=== PATIENT | male | born 1965 | race African-American/Black ===

== ENCOUNTER 2018-05-12 16:17 | Inpatient (IN) ==
[2018-05-12] MEDS ORDERED: METOPROLOL TARTRATE 5 MG/5 ML VIAL IV ONE (18:59)
[2018-05-12] MEDS ORDERED: ACETAMINOPHEN 325 MG TABLET PO PRN (19:40)
[2018-05-12] MEDS ORDERED: ONDANSETRON 4 MG/2 ML VIAL IV PRN (19:40)
[2018-05-12] MEDS: HEPARIN DRIP 25,000 UNITS/500 ML PREMIX IV SCH (20:40)
[2018-05-12 20:47] LABS: Basophils % 0.7 % (0.0-0.8); Eosinophils % 0.5 % (0.00-10.9); Hematocrit 39.2 VOL% (42.0-52.0); Hemoglobin 11.9 GM/DL (14.0-18.0); Immature Granulocytes % 0.4 %; Immature Granulocytes Absolute 0.02 #; Lymphocytes % 16.9 % (21.2-54.2); Mean Corpuscular HGB Conc 30.4 GM/DL (32-36); Mean Corpuscular Hemoglobin 23 PG (27-34); Mean Corpuscular Volume 75.5 FL (87-102); Mean Platelet Volume 11.9 FL (9.6-12.0); Monocytes # 0.3 10*3/uL (0.11-0.8); Monocytes % 4.8 % (1.7-12.7); Neutrophils # 4.3 10*3/uL (1.4-7.4); Neutrophils % 76.7 % (38.7-73.9); Platelet Count 218 T/CUMM (130-400); Red Blood Count 5.19 MC/CUMM (3.8-5.5); Red Cell Distribution Width 15.8 % (9.3-17.3); White Blood Count 5.6 T/CUMM (4-12)
[2018-05-12 21:14] LABS: Alanine Aminotransferase 20 U/L (16-61); Albumin 3.4 G/DL (3.4-5.0); Alkaline Phosphatase 78 U/L (45-117); Aspartate Amino Transferase 20 U/L (0-37); Blood Urea Nitrogen 15 MG/DL (7-18); Calcium 8.8 MG/DL (8.5-10.1); Cholesterol 187 MG/DL (50-200); Glucose 110 MG/DL (74-106); HDL Cholesterol 38 MG/DL (40-60); Osmolality,Calculated 287.8 MOS/KG (273-304); Potassium 4.3 MMOL/L (3.5-5.1); Risk Ratio 4.92; Sodium 144 MMOL/L (136-145); Triglycerides 46 MG/DL (2-150); Troponin I < 0.015 NG/ML (0.00-0.045); VLDL CHOLESTEROL 9.2 MG/DL
[2018-05-13] MEDS: DILTIAZEM INJ 100 MG in SODIUM CHLORIDE 0.9% 100 ML IV SCH ×2 (02:40→10:05)
[2018-05-13 03:45] LABS: Basophils % 0.7 % (0.0-0.8); Eosinophils # 0.1 10*3/uL (0.0-0.87); Eosinophils % 1.9 % (0.00-10.9); Hematocrit 37.7 VOL% (42.0-52.0); Hemoglobin 11.5 GM/DL (14.0-18.0); Immature Granulocytes % 0.4 %; Immature Granulocytes Absolute 0.02 #; Lymphocytes # 1.4 10*3/uL (1.4-4.0); Lymphocytes % 25.9 % (21.2-54.2); Mean Corpuscular HGB Conc 30.5 GM/DL (32-36); Mean Corpuscular Hemoglobin 23 PG (27-34); Mean Corpuscular Volume 74.7 FL (87-102); Mean Platelet Volume 11.9 FL (9.6-12.0); Monocytes # 0.5 10*3/uL (0.11-0.8); Monocytes % 9.1 % (1.7-12.7); Neutrophils # 3.4 10*3/uL (1.4-7.4); Platelet Count 238 T/CUMM (130-400); Red Blood Count 5.05 MC/CUMM (3.8-5.5); Red Cell Distribution Width 15.8 % (9.3-17.3); White Blood Count 5.4 T/CUMM (4-12)
[2018-05-13 04:10] LABS: Alanine Aminotransferase 17 U/L (16-61); Alkaline Phosphatase 72 U/L (45-117); Aspartate Amino Transferase 15 U/L (0-37); Blood Urea Nitrogen 15 MG/DL (7-18); Calcium 8.6 MG/DL (8.5-10.1); Glucose 108 MG/DL (74-106); Osmolality,Calculated 284.1 MOS/KG (273-304); Potassium 3.6 MMOL/L (3.5-5.1); Sodium 142 MMOL/L (136-145); Total Protein 6.4 G/DL (6.4-8.3); Troponin I < 0.015 NG/ML (0.00-0.045)
[2018-05-13 05:15] LABS: Apearance,Urine CLEAR (Clear); Bilirubin,Urine Negative (Negative); Blood, Urine Negative (Negative); Glucose,Urine (UA) Negative (Negative); Hyaline Casts,Urine 3 /LPF (0-3); Ketones,Urine Negative (Negative); Mucus,Urine Few /LPF (Occasional); Nitrite,Urine Negative (Negative); Protein,Urine Negative; RBC,Urine <1 /HPF (0-4); Squamous Epithelial Cell,Urine Occasional /HPF (0-10); Urine Color Yellow (Yellow); Urine Specific Gravity 1.016 (1.001-1.035); Urine Urobilinogen < 2.0 EU/DL (0.2-1.0); WBC,Urine 2 /HPF (0-6)
[2018-05-13] MEDS: HEPARIN DRIP 25,000 UNITS/500 ML PREMIX IV SCH (06:25)
[2018-05-13] MEDS: PANTOPRAZOLE 40 MG TABLET PO SCH (09:06)
[2018-05-13] MEDS ORDERED: POTASSIUM CHLORIDE 20 MEQ TABLET PO ONE (09:50)
[2018-05-13] MEDS: DILTIAZEM CD 240 MG CAPSULE PO SCH ×2 (11:37→20:49)
[2018-05-13] MEDS: ASCORBIC ACID 500 MG TABLET PO SCH (20:50)
[2018-05-13] MEDS: APIXABAN 5 MG TABLET PO SCH (20:50)
[2018-05-14 03:55] LABS: Basophils # 0.1 10*3/uL (0.0-0.2); Basophils % 0.9 % (0.0-0.8); Eosinophils # 0.1 10*3/uL (0.0-0.87); Eosinophils % 0.9 % (0.00-10.9); Hematocrit 38.4 VOL% (42.0-52.0); Hemoglobin 11.7 GM/DL (14.0-18.0); Immature Granulocytes % 0.3 %; Immature Granulocytes Absolute 0.02 #; Lymphocytes # 1.3 10*3/uL (1.4-4.0); Lymphocytes % 19.6 % (21.2-54.2); Mean Corpuscular HGB Conc 30.5 GM/DL (32-36); Mean Corpuscular Hemoglobin 23 PG (27-34); Mean Corpuscular Volume 74.6 FL (87-102); Monocytes # 0.5 10*3/uL (0.11-0.8); Neutrophils # 4.7 10*3/uL (1.4-7.4); Neutrophils % 70.3 % (38.7-73.9); Platelet Count 270 T/CUMM (130-400); Red Blood Count 5.15 MC/CUMM (3.8-5.5); Red Cell Distribution Width 15.9 % (9.3-17.3); White Blood Count 6.7 T/CUMM (4-12)
[2018-05-14 04:23] LABS: Calcium 8.3 MG/DL (8.5-10.1)
[2018-05-14 04:34] LABS: Calcium 8.3 MG/DL (8.5-10.1); Osmolality,Calculated 288.8 MOS/KG (273-304); Thyroid Stimulating Hormone 1.07 uIU/ml (0.358-3.74)
[2018-05-14] MEDS: DILTIAZEM INJ 100 MG in SODIUM CHLORIDE 0.9% 100 ML IV SCH ×2 (06:49→08:45)
[2018-05-14] MEDS ORDERED: DILTIAZEM 25 MG/5 ML VIAL IV ONE (08:39)
[2018-05-14] MEDS ORDERED: DILTIAZEM 50 MG/10 ML VIAL IV ONE (08:52)
[2018-05-14] MEDS ORDERED: DILTIAZEM INJ 100 MG in SODIUM CHLORIDE 0.9% 100 ML IV SCH (09:00)
[2018-05-14] MEDS: METOPROLOL SUCCINATE XL 50 MG TABLET PO SCH (12:25)
[2018-05-14] MEDS: DILTIAZEM CD 240 MG CAPSULE PO SCH ×2 (12:25→20:22)
[2018-05-14] MEDS: ASCORBIC ACID 500 MG TABLET PO SCH ×2 (12:26→20:22)
[2018-05-14] MEDS: APIXABAN 5 MG TABLET PO SCH ×2 (12:26→20:22)
[2018-05-14] MEDS: PANTOPRAZOLE 40 MG TABLET PO SCH (12:26)
[2018-05-15 05:37] LABS: Basophils # 0.1 10*3/uL (0.0-0.2); Basophils % 1.1 % (0.0-0.8); Eosinophils # 0.2 10*3/uL (0.0-0.87); Eosinophils % 3.2 % (0.00-10.9); Hemoglobin 11.7 GM/DL (14.0-18.0); Immature Granulocytes % 0.2 %; Immature Granulocytes Absolute 0.01 #; Lymphocytes # 1.8 10*3/uL (1.4-4.0); Lymphocytes % 27.7 % (21.2-54.2); Mean Corpuscular Hemoglobin 22 PG (27-34); Mean Corpuscular Volume 74.4 FL (87-102); Mean Platelet Volume 11.8 FL (9.6-12.0); Monocytes # 0.6 10*3/uL (0.11-0.8); Monocytes % 9.3 % (1.7-12.7); Neutrophils # 3.8 10*3/uL (1.4-7.4); Neutrophils % 58.5 % (38.7-73.9); Platelet Count 276 T/CUMM (130-400); Red Blood Count 5.24 MC/CUMM (3.8-5.5); White Blood Count 6.5 T/CUMM (4-12)
[2018-05-15 06:02] LABS: Calcium 8.3 MG/DL (8.5-10.1); Osmolality,Calculated 290.7 MOS/KG (273-304); Potassium 3.9 MMOL/L (3.5-5.1)
[2018-05-15] MEDS: DILTIAZEM INJ 100 MG in SODIUM CHLORIDE 0.9% 100 ML IV SCH (06:35)
[2018-05-15] MEDS: DILTIAZEM CD 240 MG CAPSULE PO SCH ×2 (09:50→20:21)
[2018-05-15] MEDS: PANTOPRAZOLE 40 MG TABLET PO SCH (09:50)
[2018-05-15] MEDS: METOPROLOL SUCCINATE XL 50 MG TABLET PO SCH (09:51)
[2018-05-15] MEDS: ASCORBIC ACID 500 MG TABLET PO SCH ×2 (09:51→22:52)
[2018-05-15] MEDS: APIXABAN 5 MG TABLET PO SCH ×2 (09:52→20:22)
[2018-05-15] MEDS: cefTRIAXone 1,000 MG in SYRINGE 1 EACH IV SCH (14:32)
[2018-05-15] MEDS: VANCOMYCIN INJ 2,500 MG in SODIUM CHLORIDE 0.9% 500 ML IV SCH (14:38)
[2018-05-16] MEDS: VANCOMYCIN INJ 2,500 MG in SODIUM CHLORIDE 0.9% 500 ML IV SCH ×2 (01:49→14:17)
[2018-05-16] MEDS: DILTIAZEM INJ 100 MG in SODIUM CHLORIDE 0.9% 100 ML IV SCH (02:00)
[2018-05-16 06:06] LABS: Basophils # 0.1 10*3/uL (0.0-0.2); Basophils % 0.9 % (0.0-0.8); Eosinophils # 0.4 10*3/uL (0.0-0.87); Eosinophils % 5.8 % (0.00-10.9); Hematocrit 39.7 VOL% (42.0-52.0); Hemoglobin 12.1 GM/DL (14.0-18.0); Immature Granulocytes % 0.1 %; Immature Granulocytes Absolute 0.01 #; Lymphocytes # 1.8 10*3/uL (1.4-4.0); Lymphocytes % 26.8 % (21.2-54.2); Mean Corpuscular HGB Conc 30.5 GM/DL (32-36); Mean Corpuscular Hemoglobin 23 PG (27-34); Mean Corpuscular Volume 74.8 FL (87-102); Mean Platelet Volume 11.9 FL (9.6-12.0); Monocytes # 0.7 10*3/uL (0.11-0.8); Monocytes % 9.5 % (1.7-12.7); Neutrophils # 3.9 10*3/uL (1.4-7.4); Neutrophils % 56.9 % (38.7-73.9); Platelet Count 266 T/CUMM (130-400); Red Blood Count 5.31 MC/CUMM (3.8-5.5); White Blood Count 6.8 T/CUMM (4-12)
[2018-05-16 06:23] LABS: Calcium 8.4 MG/DL (8.5-10.1); Potassium 3.6 MMOL/L (3.5-5.1)
[2018-05-16] MEDS: ASCORBIC ACID 500 MG TABLET PO SCH ×2 (10:00→20:06)
[2018-05-16] MEDS: PANTOPRAZOLE 40 MG TABLET PO SCH (10:00)
[2018-05-16] MEDS: DILTIAZEM CD 240 MG CAPSULE PO SCH ×2 (10:00→20:06)
[2018-05-16] MEDS: APIXABAN 5 MG TABLET PO SCH ×2 (10:00→20:05)
[2018-05-16] MEDS: METOPROLOL SUCCINATE XL 50 MG TABLET PO SCH (10:02)
[2018-05-16] MEDS: cefTRIAXone 1,000 MG in SYRINGE 1 EACH IV SCH (12:25)
[2018-05-17] MEDS: VANCOMYCIN INJ 2,500 MG in SODIUM CHLORIDE 0.9% 500 ML IV SCH (01:27)
[2018-05-17] MEDS: DILTIAZEM INJ 100 MG in SODIUM CHLORIDE 0.9% 100 ML IV SCH (02:38)
[2018-05-17] MEDS: ASCORBIC ACID 500 MG TABLET PO SCH (08:38)
[2018-05-17] MEDS: DILTIAZEM CD 240 MG CAPSULE PO SCH (08:39)
[2018-05-17] MEDS: METOPROLOL SUCCINATE XL 50 MG TABLET PO SCH (08:39)
[2018-05-17] MEDS: PANTOPRAZOLE 40 MG TABLET PO SCH (08:39)
[2018-05-17] MEDS: APIXABAN 5 MG TABLET PO SCH (08:39)
[2018-05-17] MEDS ORDERED: METOPROLOL SUCCINATE XL 50 MG TABLET PO SCH (10:00)
[2018-05-17] MEDS: cefTRIAXone 1,000 MG in SYRINGE 1 EACH IV SCH (12:32)
[2018-05-17 12:48] VITALS: BP 139/79
[2018-05-17] MEDS ORDERED: VANCOMYCIN INJ 2,500 MG in SODIUM CHLORIDE 0.9% 500 ML IV SCH (20:00)
== END 2018-05-17 18:00 | disposition home or self-care (01) | DRG 309 ==
LOC: N.TELES → OBSVTOIN 17:33 → SUATTDRO 17:33
PROVIDERS: ADMIT Internal Medicine; ATTEND Internal Medicine